=== PATIENT | female | born 1970 | race Caucasian/White ===

== ENCOUNTER 2017-06-06 13:40 | Emergency (ER) | payer BC, MEDICAID ==
[2017-06-06] MEDS ORDERED: CEPHALEXIN MONOHYDRATE 250 MG CAPSULE PO ONE (14:00)
--- NOTE | 2017-06-06 14:01 | ERNOTE ---
Integumentary HPI - Narrative Date of Service: 06/06/17 - General Presenting Symptoms: abscess Time Seen by Provider: 06/06/17 13:51 Source: patient, RN notes reviewed Exam Limitations: no limitations - Immun/Allergies/Home Medications Immunizations: IMMUNIZATION HX Immunizations Up to Date Yes History of Influenza Vaccine No Hx Pneumococcal Vaccination No Allergies/Adverse Reactions: Allergies Allergy/AdvReac Type Severity Reaction Status Date / Time asenapine [From Saphris] AdvReac Intermediate Other Verified 06/06/17 13:53 lurasidone [From Latuda] AdvReac Intermediate Other Verified 06/06/17 13:53 Home Medications: HOME MEDICATIONS Cephalexin 500 mg PO TID #30 tab 06/06/17 [Last Taken Unknown] Clonidine HCl [Catapres] 0.1 mg PO HS 06/06/17 [Last Taken Unknown] Cyclobenzaprine HCl [Flexeril] 10 mg PO TID PRN 06/06/17 [Last Taken Unknown] Doxepin HCl 50 mg PO DAILY 06/06/17 [Last Taken Unknown] Metoprolol Succinate [Toprol Xl] 50 mg PO BID 06/06/17 [Last Taken Unknown] Montelukast Sodium [Singulair] 10 mg PO DAILY 06/06/17 [Last Taken Unknown] Topiramate [Topamax] 50 mg PO BID 06/06/17 [Last Taken Unknown] Venlafaxine HCl [Effexor] 300 mg PO DAILY 06/06/17 [Last Taken Unknown] clonazePAM [Klonopin] 1 mg PO QID 06/06/17 [Last Taken Unknown] - History of Present Illness Narrative: 46 y/o female presents to the ED for a lesion on her left volar wrist. She smacked and killed a spider on her arm 6 days ago. The lesion appeared 2 days ago. She is unsure if it is a bite or something else. Date (Duration): 06/04/17 Location: Reports: upper extremity Quality: Reports: painful Severity: mild Exposure: Reports: no cause identified Prior Treatment: Denies: recently seen, currently on antibiotics Review of Systems - Review of Systems Constitutional: Absent: fever, chills, malaise EYE: Present: no symptoms reported ENT: Present: no symptoms reported Respiratory: Present: no symptoms reported Cardiology: Present: no symptoms reported Gastrointestinal/Abdominal: Absent: nausea, vomiting Genitourinary: Present: no symptoms reported Musculoskeletal: Absent: joint pain, joint swelling Skin: Present: lesions. Absent: rash, change in color Neurological: Absent: weakness, numbness, tingling Endocrine: Present: no symptoms reported Hematologic/Lymphatic: Present: no symptoms reported Psych: Present: no symptoms reported - Patient's Past Medical History Patient History - Medical: Anxiety, Diabetes Type 2 Insulin Dependent, Depression, Obesity Patient History - Cardiac/Respiratory: COPD, Hypertension Patient History - Cancer: No Hx of Cancer Patient History - Surgical Procedures: Cholecystectomy, , Ear Tubes, Gastric Bypass, Total Knee Replacement, T & A, ENT, Hernia Repair Patient History - Other: None - Family History Mother Family History - Cancer: Pancreatic - Social History Living Situations: home Abuse History: No History of abuse Psych History: Hx of Anxiety, Current tx/ever been on anti-depressants or anti- anxiety meds Smoking Status: Never smoker Have you smoked in the past 12 months: No Alcohol Use: none Drug Use: none - Immunizations Immunizations Up to Date: Yes Hx Pneumococcal Vaccination: No History of Influenza Vaccine: No Physical Exam - Physical Exam General Appearance: Present: alert, no apparent distress, obese Respiratory: Present: no respiratory distress, no accessory muscle use Cardiovascular/Chest: Present: normal peripheral pulses Extremity Exam: Present: normal range of motion, no edema. Absent: joint redness, joint swelling Neurological Exam: Present: alert, oriented, no motor/sensory deficits. Absent : normal mood/affect Skin Exam: Present: normal color, warm/dry, other - erythematous cystic lesion to left volar wrist, tender to palpation, not fluctuant - does not appear that I &D wound be beneficial ED Progress - Vital Signs Patient's Vital Signs:: I have reviewed the patient's vital signs. Vital Signs: Vital Signs 06/06/17 13:46 Temperature 36.8 C Pulse Rate 109 H Respiratory 16 Rate O2 Sat by Pulse 97 Oximetry - Progress/Reassessment Chief Complaint: Cellulitis Progress:: Unchanged Departure Clinical Impression: Abscess - Departure Disposition: Home Follow Up Needed Condition: Good Instructions: Abscess, [id number] Additional Instructions: Use warm, moist compresses to lesion several times a day Return for fever, vomiting, if lesion appears to need to be opened or other worsening symptoms Prescriptions: Cephalexin 500 mg PO TID #30 tab
[2017-06-06] MEDS ORDERED: CEPHALEXIN MONOHYDRATE 250 MG CAPSULE ONE (14:05)
== END 2017-06-06 14:12 | disposition home or self-care (01) ==
LOC: ER 13:40
DX: L02.414 Cutaneous abscess of left upper limb (principal); F41.9 Anxiety disorder, unspecified; F32.9 Major depressive disorder, single episode, unspecified; J44.9 Chronic obstructive pulmonary disease, unspecified; I10 Essential (primary) hypertension